=== PATIENT | female | born 2000 | race African-American/Black ===

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

== ENCOUNTER 2020-08-25 12:55 | Emergency (ER) | payer OTHER, SELFPAY ==
[2020-08-25 13:22] LABS: #Eosinphils 0.1 thou/uL (0.0-0.7); #Monocytes 0.3 thou/uL (0.11-0.59); #Neutrophils 1.4 thou/uL (1.40-6.50); %Basophils 1.5 % (0.0-1.0); %Eosinophils 3.2 % (0.0-10.0); %Lymphocytes 34.3 % (28.0-48.0); %Monocytes 11.7 % (0.0-4.0); %Neutrophils 49.3 % (31.0-61.0); Hemoglobin 13.7 g/dL (12.0-16.0); Mean Corpuscular HGB CONC 33.2 g/dL (32.0-36.0); Mean Corpuscular Hemoglobin 30.9 pg (25.0-35.0); Mean Platelet Volume 6.9 fL (7.4-10.4); Platelet Count 311 thou/uL (130-400); RBC Distribution Width 11.5 % (11.5-14.5); Red Blood Cell (RBC) Count 4.44 mill/uL (4.00-5.20); White Blood Cell (WBC) Count 2.9 thou/uL (4.8-10.8)
--- NOTE | 2020-08-25 14:10 | ULT ---
ULTRASOUND PELVIC ULTRASOUND TRANSVAGINAL DOPPLER DUPLEX: DATE: 08/25/2020 HISTORY: 20-year-old female with first trimester vaginal bleeding TECHNIQUE: Transabdominal transducer and endovaginal transducer used to visualize intrapelvic contents with walters scale, color-flow, and spectral analysis. FINDINGS: Within the endometrial stripe, there is a 0.5 x 0.3 x 0.5 cm tiny cystic structure which could be a v katelyn early first trimester intrauterine gestational sac. The other possibility is severely gestational sac from ectopic . Its mean diameter corresponds to 5 weeks 1 day gestational ag e. No adnexal ectopic gestation is visualized, but a negative ultrasound does not rule it out. No embryonic pole or yolk sac is visualized within the intrauterine cystic structure. Tiny amount of free fluid in the cul-de-sac. Bilateral ovaries appear normal with demonstration of blood flow by Doppler. IMPRESSION: 1) early first trimester intrauterine gestational sac without yolk sac or pole. Alternatively, this could be pseudogestational sac of occult ectopic . 2) recommend follow-up pelvic and transvaginal ultrasound in 11 days.
[2020-08-25 14:48] LABS: Bilirubin Negative (Negative); Blood, Urine Negative (Negative); Clarity Clear (Clear); Glucose, Urine (Dipstick) Normal (Negative); Ketone, Urine 80 mg/dL (Negative); Leukocyte Negative Leu/uL (Negative); Nitrite Negative (Negative); Protein, Urine (Dipstick) 20 mg/dL (Neg-Trace); Specific Gravity, Urine 1.026 (1.002-1.036)
== END 2020-08-25 16:02 | disposition home or self-care (01) ==
LOC: ERS 12:55
DX: O20.0 Threatened abortion (principal); Z3A.01 Less than 8 weeks gestation of pregnancy
CPT/HCPCS: 36415; 76856; 81003; 84702; 85025; 86900; 86901

== ENCOUNTER 2020-08-27 14:30 | Emergency (ER) | payer SELFPAY ==
[2020-08-27] MEDS ORDERED: Ibuprofen 800 MG TAB ONE (23:43)
== END 2020-08-27 18:51 | disposition home or self-care (01) ==
LOC: ERS 14:30
DX: O20.9 Hemorrhage in early pregnancy, unspecified (principal)
CPT/HCPCS: 84702; 99284

== ENCOUNTER 2020-11-16 13:35 | Emergency (ER) | payer MEDICAID, SELFPAY ==
[2020-11-16] MEDS ORDERED: Acetaminophen 500 MG TAB ONE (14:04)
[2020-11-16 14:09] LABS: #Eosinphils 0.3 thou/uL (0.0-0.7); #Lymphocytes 1.2 thou/uL (1.20-3.40); #Monocytes 0.5 thou/uL (0.11-0.59); %Basophils 0.4 % (0.0-1.0); %Eosinophils 5.2 % (0.0-10.0); %Lymphocytes 19.7 % (28.0-48.0); %Monocytes 8.3 % (0.0-4.0); %Neutrophils 66.5 % (31.0-61.0); Hemoglobin 11.7 g/dL (12.0-16.0); Mean Corpuscular HGB CONC 34.3 g/dL (32.0-36.0); Mean Corpuscular Hemoglobin 30.8 pg (25.0-35.0); Mean Corpuscular Volume 89.8 fL (78.0-98.0); Mean Platelet Volume 6.7 fL (7.4-10.4); Platelet Count 229 thou/uL (130-400); RBC Distribution Width 11.8 % (11.5-14.5); White Blood Cell (WBC) Count 6.1 thou/uL (4.8-10.8)
[2020-11-16 14:30] LABS: ALT (SGPT) 9 U/L (8-55); AST (SGOT) 10 U/L (5-34); Albumin 3.6 g/dL (3.5-5.0); Alkaline Phosphatase 35 U/L (40-100); Anion Gap 10 mmol/L (10-20); BUN (Urea Nitrogen) 7 mg/dL (7.0-18.7); Bilirubin, Total 0.3 mg/dL (0.2-1.2); Calc. Creatinine Clearance 0 mL/min (70-130); Calcium 8.7 mg/dL (7.8-10.44); Carbon Dioxide 24 mmol/L (22-29); Chloride 104 mmol/L (98-107); Glucose 71 mg/dL (70-105); Lipase 26 U/L (8-78); Potassium 3.7 mmol/L (3.5-5.1); Protein, Total 6.6 g/dL (6.0-8.3); Sodium 134 mmol/L (136-145)
[2020-11-16 15:06] LABS: Bilirubin Negative (Negative); Blood, Urine Negative (Negative); Clarity Clear (Clear); Glucose, Urine (Dipstick) Normal (Negative); Ketone, Urine Negative (Negative); Leukocyte Negative Leu/uL (Negative); Nitrite Negative (Negative); Protein, Urine (Dipstick) Negative (Neg-Trace); Specific Gravity, Urine 1.016 (1.002-1.036); Urobilinogen Normal mg/dL (Less than 2)
== END 2020-11-16 15:18 | disposition home or self-care (01) ==
LOC: ERS 13:35
DX: O99.891 Other specified diseases and conditions complicating pregnancy (principal); R10.31 Right lower quadrant pain; R10.32 Left lower quadrant pain; Z3A.17 17 weeks gestation of pregnancy
CPT/HCPCS: 36415; 80053; 81003; 83690; 85025; 99284